=== PATIENT | female | born 1995 | race Caucasian/White ===

== ENCOUNTER 2024-07-16 06:12 | Emergency (ER) | payer OTHER, SELFPAY ==
[2024-07-16 06:15] VITALS: BP 152/111; PULSE 93; TEMP 36.6; O2SAT 99; BMI 37.6
--- NOTE | 2024-07-16 06:27 | ED_ITS ---
HPI - Ear Problem General Chief complaint: Ear Stated complaint: EAR PAIN, RIGHT Time Seen by Provider: 07/16/24 06:16 Source: patient Mode of arrival: walk-in Limitations: no limitations History of Present Illness HPI Narrative: 29-year-old female presents for pain in her right ear. It started a few days ago and she went to an urgent care center and she has been on ofloxacin drops but it is not helping. She has had no trauma to the ear and does not have a sore throat or fever or contralateral ear pain. The pain is moderate to severe and continuous. Related Data Previous Rx's ?Medication ?Instructions ?Recorded ibuprofen 800 mg tablet 800 mg PO Q8H PRN pain #20 tabs 07/16/24 [id number] 3.5 4 drp otic (ear) Q6H 7 days #10 mL 07/16/24 mg/mL-10,000 unit/mL-1 % ear solution Allergies Allergy/AdvReac Type Severity Reaction Status Date / Time erythromycin base AdvReac Mild Hives Verified 07/16/24 06:20 sulfamethoxazole (From AdvReac Mild Hives Verified 07/16/24 06:20 Bactrim) trimethoprim (From Bactrim) AdvReac Mild Hives Verified 07/16/24 06:20 Review of Systems ROS Narrative A ten point review of systems is negative except as noted above. PFSH PFSH Social History Little interest or pleasure in doing things: not at all Feeling down, depressed, or hopeless: not at all Exam Narrative Exam Narrative: Nurses note and vital signs reviewed and patient is not hypoxic. General: The patient appears well and in no apparent distress. Patient is resting comfortably on cart. Skin: Warm, dry, no pallor noted. There is no rash noted. Head: Normocephalic, atraumatic Eye: Normal conjunctiva, no drainage Ears, Nose, Mouth, and Throat: oral mucosa is moist. Nares patent. Moderate amount of cerumen in the left external canal. The right external canal is quite swollen with drainage. Cardiovascular: Regular Rate and Rhythm Respiratory: Patient is in no distress, no accessory muscle use Back: non-tender GI: Soft and nontender Musculoskeletal: The patient has no evidence of calf tenderness, no pitting edema, symmetrical pulses noted bilaterally Neurological: A&O, normal speech Psychiatric: Cooperative Constitutional Vital Signs, click to edit/add: Last Vital Signs Temp 97.8 F 07/16/24 06:15 Pulse 93 H 07/16/24 06:15 Resp 18 07/16/24 06:15 BP 152/111 H 07/16/24 06:15 Pulse Ox 99 07/16/24 06:15 O2 Del Method Room Air 07/16/24 06:15 Course Vital Signs Vital signs: Vital Signs Temperature 97.8 F 07/16/24 06:15 Pulse Rate 93 H 07/16/24 06:15 Respiratory Rate 18 07/16/24 06:15 Blood Pressure 152/111 H 07/16/24 06:15 Pulse Oximetry 99 07/16/24 06:15 Oxygen Delivery Method Room Air 07/16/24 06:15 Temperature 97.8 F 07/16/24 06:15 Pulse Rate 93 H 07/16/24 06:15 Respiratory Rate 18 07/16/24 06:15 Blood Pressure 152/111 H 07/16/24 06:15 Pulse Oximetry 99 07/16/24 06:15 Oxygen Delivery Method Room Air 07/16/24 06:15 Medical Decision Making MDM Narrative Medical decision making narrative: She will be switched to Cortisporin. Treatment diagnosis and follow-up were discussed with the patient. Differential Diagnosis Differential Diagnosis: Otitis media, otitis externa Discharge Plan Discharge Chief Complaint: Ear Clinical Impression: Otitis externa Patient Disposition: Home, Self-Care Time of Disposition Decision: 06:24 Condition: Good Mode of Transportation: Private Vehicle Prescriptions / Home Meds: New ibuprofen 800 mg tablet 800 mg PO Q8H PRN (Reason: pain) Qty: 20 0RF [id number] 3.5-10,000-1 mg/mL-unit/mL-% solution 4 drp otic (ear) Q6H 7 Days Qty: 10 0RF Print Language: [place]raini Instructions: Swimmer's [facility] (ED)
== END 2024-07-16 06:44 | disposition home or self-care (01) ==
PROVIDERS: Emergency Provider Emergency Medicine
DX: H60.91 Unspecified otitis externa, right ear (principal)
CPT/HCPCS: 99283